=== PATIENT | female | born 1985 | race Caucasian/White ===

== ENCOUNTER 2017-06-15 07:59 | Emergency (ER) | payer OTHER ==
[2017-06-15] MEDS ORDERED: DEXAMETHASONE 10 MG/ML VIAL PO STA (08:41)
[2017-06-15] MEDS ORDERED: KETOROLAC 60 MG/2 ML VIAL IM STA (08:41)
--- NOTE | 2017-06-15 08:44 | ED Physician Documentation ---
PD HPI CHEST PAIN - Stated complaint Stated Complaint: CHEST PX - Chief complaint Chief Complaint: Cardiac - History obtained from History obtained from: Patient - History of Present Illness Timing - onset: Enter time (0), Last night Timing - onset during: Sleep Timing - duration: Hours Timing - details: Abrupt onset, Still present Pain level max: 8 Pain level now: 7 Quality: Pressure, Sharp Location: Left chest Improved by: Rest Worsened by: Exertion, Inspiration, Movement, Palpation, Position Associated symptoms: Feeling faint / dizzy. No: Shortness of air, Diaphoresis, Nausea, Vomiting Similar symptoms before: Diagnosis (costochondritis) Recently seen: Not recently seen Review of Systems Constitutional: denies: Fever, Chills, Myalgias, Fatigue Eyes: denies: Decreased vision Ears: denies: Ear pain Nose: reports: Congestion Throat: denies: Sore throat Cardiac: reports: Chest pain / pressure. denies: Palpitations Respiratory: denies: Dyspnea, Cough GI: denies: Abdominal Pain, Nausea, Vomiting : denies: Dysuria, Frequency Skin: denies: Rash Musculoskeletal: denies: Neck pain, Back pain, Extremity pain PD PAST MEDICAL HISTORY - Past Medical History Past Medical History: No - Past Surgical History Past Surgical History: No - Present Medications Home Medications: Ambulatory Orders Medication Instructions Recorded Confirmed HYDROcod/ACETAM 5/325 [[place] 5/325] 1 - 2 ea PO Q6H PRN #15 tablet 06/15/17 - Allergies Allergies/Adverse Reactions: Allergies Allergy/AdvReac Type Severity Reaction Status Date / Time No Known Drug Allergies Allergy Verified 06/15/17 08:10 - Social History Does the pt smoke?: No Smoking Status: Never smoker Does the pt drink ETOH?: No Does the pt have substance abuse?: No - Immunizations Immunizations are current?: Yes - POLST Patient has POLST: No PD ED PE NORMAL - Vitals Vital signs reviewed: Yes (hypertensive) - General General: No acute distress, Well developed/nourished - HEENT HEENT: Atraumatic, PERRL, EOMI, Ears normal, Moist mucous membranes, Pharynx benign, Dentition benign - Neck Neck: Supple, no meningeal sign, No bony TTP - Cardiac Cardiac: RRR, No murmur - Respiratory Respiratory: No respiratory distress, Clear bilaterally, Other (There is left chest wall tenderness that reproduces the symptoms the patient is having. ) - Abdomen Abdomen: Soft, Non tender - Back Back: No CVA TTP, No spinal TTP - Derm Derm: Normal color, Warm and dry, No rash - Extremities Extremities: No deformity, No edema - Neuro Neuro: No motor deficit, No sensory deficit Eye Opening: Spontaneous Motor: Obeys Commands Verbal: Oriented GCS Score: 15 Results - Vitals Vitals: Vital Signs - 24 hr 06/15/17 06/15/17 06/15/17 08:05 08:47 09:56 Temperature 36.9 C 36.8 C 36.9 C Heart Rate 71 76 69 Respiratory 18 15 15 Rate Blood Pressure 145/101 H 131/90 H O2 Saturation 100 100 99 Oxygen O2 Source Room air - EKG (time done) 0806 Rate: Rate (enter#) (76) Rhythm: NSR QRS: Low voltage Compare to prior EKG: Unchanged from prior EKG (01-24-15) Computer interpretation: Agree with computer - Labs Labs: Laboratory Tests 06/15/17 06/15/17 06/15/17 08:50 08:50 08:50 WBC 5.1 RBC 4.39 Hgb 13.2 Hct 38.1 MCV 86.8 MCH 30.0 MCHC 34.6 RDW 12.3 Plt Count 219 MPV 7.6 L Neut # 3.4 Lymph # 1.2 L Sharp # 0.5 Eos # 0.1 Baso # 0.0 Absolute Nucleated RBC 0.00 Nucleated RBC % 0.0 Sodium 137 Potassium 3.6 Chloride 104 Carbon Dioxide 24 Anion Gap 9.0 BUN 15 Creatinine 0.7 Estimated GFR (MDRD) 98 Glucose 92 Calcium 9.0 Total Bilirubin 0.6 AST 15 ALT 10 Alkaline Phosphatase 46 Troponin I < 0.04 Total Protein 7.0 Albumin 4.1 Globulin 2.9 Albumin/Globulin Ratio 1.4 Lipase 33 Urine Color Urine Clarity Urine pH Ur Specific [place] Urine Protein Urine Glucose (UA) Urine Ketones Urine Occult Blood Urine Nitrite Urine Bilirubin Urine Urobilinogen Ur Leukocyte Esterase Ur Microscopic Review Urine Culture Comments Urine HCG, Qual 06/15/17 09:19 WBC RBC Hgb Hct MCV MCH MCHC RDW Plt Count MPV Neut # Lymph # Sharp # Eos # Baso # Absolute Nucleated RBC Nucleated RBC % Sodium Potassium Chloride Carbon Dioxide Anion Gap BUN Creatinine Estimated GFR (MDRD) Glucose Calcium Total Bilirubin AST ALT Alkaline Phosphatase Troponin I Total Protein Albumin Globulin Albumin/Globulin Ratio Lipase Urine Color YELLOW Urine Clarity CLEAR Urine pH 6.0 Ur Specific [place] >=1.030 H Urine Protein NEGATIVE Urine Glucose (UA) NEGATIVE Urine Ketones 15 H Urine Occult Blood TRACE-INTA Urine Nitrite NEGATIVE Urine Bilirubin NEGATIVE Urine Urobilinogen 0.2 (NORMAL) Ur Leukocyte Esterase NEGATIVE Ur Microscopic Review NOT INDICATED Urine Culture Comments NOT INDICATED Urine HCG, Qual NEGATIVE - Rads (name of study) 2 view chest Radiology: Prelim report reviewed (Impression: Normal two-view chest radiography.), EMP read indepedently, See rad report PD MEDICAL DECISION MAKING - ED course Complexity details: reviewed old records, reviewed results, re-evaluated patient , considered differential, d/w patient ED course: 32-year-old female with acute left chest discomfort has chest wall pain that reproduces her symptoms and she has had this previously when she was using a harness at work and this ended up having to ribs out of place and the patient eventually went to see a chiropractor and had the ribs adjusted and had resolution of her pain. I suspect she has similar issue today. She does not have ensuing injury to start this. Departure - Departure Disposition: 01 Home, Self Care Clinical Impression: Costochondritis Condition: Stable Instructions: ED Chest Pain Costochondritis Follow-Up: Manish Newman MD [Primary Care Provider] - Prescriptions: HYDROcod/ACETAM 5/325 [[place] 5/325] 1 - 2 ea PO Q6H PRN #15 tablet PRN Reason: Pain Comments: Today in the Emergency Department your blood pressure was elevated. This can happen from the stress of the visit itself, from a current illness or circumstance or from uncontrolled hypertension. If you take blood pressure medications take your usual mediations, have your blood pressure re-checked in an appropriate setting and follow up any elevation with your primary care doctor.
[2017-06-15 08:57] LABS: BASOPHILS % (AUTO) 0.4 %; EOSINOPHILS # (AUTO) 0.1 10^3/uL (0.0-0.7); EOSINOPHILS % (AUTO) 1.3 %; HCT - HEMATOCRIT 38.1 % (37.0-47.0); HGB - HEMOGLOBIN 13.2 g/dL (12.0-16.0); LYMPHOCYTES # (AUTO) 1.2 10^3/uL (1.5-3.5); LYMPHOCYTES % (AUTO) 22.9 %; MEAN CORPUSCULAR HGB CONC 34.6 g/dL (32.0-36.0); MEAN CORPUSCULAR VOLUME 86.8 fL (81.0-99.0); MEAN PLATELET VOLUME 7.6 fL (7.9-10.8); MONOCYTES # (AUTO) 0.5 10^3/uL (0.0-1.0); MONOCYTES % (AUTO) 8.9 %; NEUTROPHILS # (AUTO) 3.4 10^3/uL (1.5-6.6); NEUTROPHILS % (AUTO) 66.5 %; RED BLOOD COUNT 4.39 10^6/uL (4.20-5.40); RED CELL DISTRIBUTION WIDTH 12.3 % (12.0-15.0); UNCORRECTED WHITE BLOOD COUNT 5.1 x10^3/uL; WHITE BLOOD COUNT 5.1 x10^3/uL (4.8-10.8)
[2017-06-15 09:10] LABS: ALBUMIN/GLOBULIN RATIO 1.4 (1.0-2.2); BILIRUBIN,TOTAL 0.6 mg/dL (0.2-1.0); CREATININE 0.7 mg/dL (0.4-1.0); POTASSIUM 3.6 mmol/L (3.5-5.0)
[2017-06-15] MEDS ORDERED: KETOROLAC 60 MG/2 ML VIAL ONE (09:24)
[2017-06-15] MEDS ORDERED: DEXAMETHASONE 10 MG/ML VIAL ONE (09:25)
[2017-06-15] MEDS ORDERED: CHERRY SYRUP 10 ML UDC PO ONE (09:25)
--- NOTE | 2017-06-15 09:26 | XRAY Preliminary Report ---
Exam: XR CHEST 2 VIEW PA/LAT IMPRESSION: Normal 2-view chest radiography. [facility] SITE ID: [id number]
--- NOTE | 2017-06-15 09:29 | XRAY Report ---
EXAM: CHEST RADIOGRAPHY EXAM DATE: 06/15/2017 09:11 AM. CLINICAL HISTORY: Left upper chest pain . COMPARISON: 02/13/2015 TECHNIQUE: 2 views. FINDINGS: Lungs/Pleura: No focal opacities evident. No pleural effusion. No pneumothorax. Normal volumes. Mediastinum: Heart and mediastinal contours are unremarkable. Other: Negative bony structures. No acute findings compared with 02/13/2015. IMPRESSION: Normal 2-view chest radiography. [facility] Referring Provider Line: [phone] SITE ID: [id number]
[2017-06-15 09:32] LABS: BILIRUBIN,URINE NEGATIVE (NEGATIVE)
[2017-06-15 09:39] LABS: HCG UR QUAL NEGATIVE; UA CHARGE (STRIP ONLY) YES; UR CULTURE IF IND NOT INDICATED
[2017-06-15 09:59] VITALS: BP 131/90
== END 2017-06-15 10:10 | disposition home or self-care (01) ==
LOC: ED 07:59
DX: M94.0 Chondrocostal junction syndrome [Tietze] (principal); R03.0 Elevated blood-pressure reading, without diagnosis of hypertension
CPT/HCPCS: 71020; 80053; 81003; 81025; 83690; 84484; 85025; 93005; 96372; 99283; 99284; A9270; 81001; 87086

== ENCOUNTER 2020-07-28 14:03 | Emergency (ER) | payer OTHER ==
[2020-07-28 14:14] VITALS: BP 104/66
--- NOTE | 2020-07-28 14:40 | ED Physician Documentation ---
History of Present Illness - Stated complaint Stated Complaint: FEVER/COUGH/NAUSEA - Chief complaint Chief Complaint: General - History obtained from History obtained from: Patient - History of Present Illness Timing: How many days ago (3) Pain level max: 0 Pain level now: 0 - Additonal information Additional information: 85-year-old female presents to the emergency department with cough and congestion for the past 3 days. No fevers. Has had diarrhea as well. No vomiting. No rash. She called the [facility] nurse advice line and was told to come here for a Covid swab. Nothing makes it better or worse. Dry cough. Review of Systems Constitutional: denies: Fever, Chills Nose: reports: Rhinorrhea / runny nose, Congestion Respiratory: reports: Cough GI: reports: Diarrhea (Nonbloody.). denies: Vomiting Skin: denies: Rash Musculoskeletal: denies: Neck pain, Back pain Neurologic: denies: Headache PD PAST MEDICAL HISTORY - Past Surgical History Past Surgical History: No - Present Medications Home Medications: Ambulatory Orders Medication Instructions Recorded Confirmed No Known Home Medications 07/28/20 07/28/20 - Allergies Allergies/Adverse Reactions: Allergies Allergy/AdvReac Type Severity Reaction Status Date / Time No Known Drug Allergies Allergy Verified 06/15/17 08:10 - Social History Does the pt smoke?: No Smoking Status: Never smoker Does the pt drink ETOH?: No Does the pt have substance abuse?: No - Immunizations Immunizations are current?: Yes - POLST Patient has POLST: No PD ED PE NORMAL - Vitals Vital signs reviewed: Yes - General General: Alert and oriented X 3, Well developed/nourished - HEENT HEENT: PERRL, Ears normal, Moist mucous membranes, Pharynx benign - Neck Neck: Supple, no meningeal sign, No adenopathy - Cardiac Cardiac: RRR, Strong equal pulses - Respiratory Respiratory: No respiratory distress, Clear bilaterally - Abdomen Abdomen: Soft, Non tender, Non distended - Derm Derm: Warm and dry - Extremities Extremities: No edema - Neuro Neuro: Alert and oriented X 3 Results - Vitals Vitals: Vital Signs - 24 hr 07/28/20 14:12 Temperature 37.0 C Heart Rate 100 Respiratory 18 Rate Blood Pressure 104/66 O2 Saturation 100 Oxygen O2 Source Room air PD MEDICAL DECISION MAKING - ED course Complexity details: considered differential, d/w patient ED course: Patient is well-appearing, nontoxic. Afebrile. No hypoxia. No respiratory distress. Appears to have a viral syndrome. Covid testing performed. Patient counseled regarding signs and symptoms for which I believe and urgent re- evaluation would be necessary. Patient with good understanding of and agreement to plan and is comfortable going home at this time This document was made in part using voice recognition software. While efforts are made to proofread this document, sound alike and grammatical errors may occur. Departure - Departure Disposition: 01 Home, Self Care Clinical Impression: Viral syndrome Condition: Good Instructions: ED Viral Syndrome Follow-Up: Manish Newman MD [Primary Care Provider] - Within 1 week Comments: Drink plenty of fluids and rest. Return if you worsen. You have a Covid test pending. You need to self quarantine until the result is done and negative. Do not leave your house. Do not get near anybody. The results should be done in 48 to 72 hours. We will call with a positive result, the fastest way to get a negative result for confirmation though is to go to the hospital website at [email or web address], click on the my [employer] tab and sign up for the patient portal. If any friends or family get sick and would like to have a Covid test done, but do not have signs or symptoms that would necessitate being hospitalized, we encourage testing through our coronavirus swabbing station, call [phone] to schedule an appointment.
--- OUTSIDE RECORDS SUMMARY | 2020-08-01 01:52 | EXTERNAL MEDICAL SUMMARY RPT | Continuity of Care Document ---
:1985 Demographics Phone Unavailable Preferred Language Unknown Marital Status Unknown Episcopalian Affiliation Unknown Race Unknown Ethnic Group Unknown Author Organization [place] Address [address] [place] [address] Phone Care Team Providers Name Role Phone Indonesian Unavailable Unavailable Problems date description facility 2015-02-13 02:45 TIETZE'S DISEASE [facility] 2015-02-13 02:45 CHEST PAIN NEC [facility] 2017-06-15 07:59 CHONDROCOSTAL JUNCTION SYNDROME [facility] [TIETZE] 2017-06-15 07:59 ELEVATED BLOOD-PRESSURE READING, [facility] W/O DIAGNOSIS OF HTN 2017-06-15 07:59 CHEST PAIN, UNSPECIFIED [facility] Allergies date description facility NO ALLERGY INFORMATION AVAILABLE [facility] PENICILLINS [facility] AVOCADO (LAURUS PERSEA) [facility] CODEINE [facility] PENICILLIN [facility] BACLOFEN [facility] MEPERIDINE [facility] CIMETIDINE HCL [facility] CODEINE SULFATE [facility] HYDROCODONE [facility] MELOXICAM [facility] MORPHINE [facility] SULFAMETHOXAZOLE W/TRIMETHOPRIM [facility] (CO-TRIMOXAZOLE) TRAMADOL [facility] SULFA ANTIBIOTICS [facility] NO ALLERGY INFORMATION AVAILABLE [facility] NO KNOWN ALLERGIES [facility] CODEINE [facility] BENAZEPRIL [facility] AMOXICILLIN-POT CLAVULANATE [facility] No Known Drug Allergies [facility] Results test status date ordered by attending specimen emerson e null F 2020-07-28 NATALIE Hernandez 2020-07 14:57:00 14:48:00 facility observation status value reference units lab abnor mal line notes range code [facility] F NEGATIVE unknown [facility] report - Report scanned to Patient' s EMR. [facility] Social History date description facility [id number]
== END 2020-07-28 14:55 | disposition home or self-care (01) ==
LOC: ED 14:03
DX: B34.9 Viral infection, unspecified (principal); Z20.822 Contact with and (suspected) exposure to COVID-19
CPT/HCPCS: 99283; 99284

== ENCOUNTER 2020-12-28 17:55 | Emergency (ER) | payer OTHER ==
[2020-12-28 18:04] VITALS: BP 122/78
--- NOTE | 2020-12-28 18:09 | ED Physician Documentation ---
PD HPI LOWER EXT INJURY - Stated complaint Stated Complaint: RT FOOT PX - Chief complaint Chief Complaint: Trauma Ext - History obtained from History obtained from: Patient - History of Present Illness PD HPI LOW EXT INJURY LOCATION: Right, Foot Type of injury: Blunt / blow (she accidnetally dropped piece of plywood onto top of right foot. Pain just there. Denies other injury.) Where injury occurred: Home Timing - onset: How many hours ago (1-2), Today Timing - details: Abrupt onset, Still present (hurts for walking and states her usual shoe not fitting well due to some swelling.) Worsened by: Moving, Palpating, Other (walking) Associated symptoms: Swelling. No: Weakness, Numbness Similar symptoms before: Has not had sx before Review of Systems Skin: denies: Abrasion (s), Laceration (s) Neurologic: denies: Focal weakness, Numbness PD PAST MEDICAL HISTORY - Past Medical History Past Medical History: No - Past Surgical History Past Surgical History: No - Present Medications Home Medications: Ambulatory Orders Medication Instructions Recorded Confirmed No Known Home Medications 07/28/20 12/28/20 - Allergies Allergies/Adverse Reactions: Allergies Allergy/AdvReac Type Severity Reaction Status Date / Time Penicillins Allergy Emesis Verified 12/28/20 18:02 - Social History Does the pt smoke?: No Smoking Status: Never smoker Does the pt drink ETOH?: No Does the pt have substance abuse?: No - Immunizations Immunizations are current?: Yes - POLST Patient has POLST: No PD ED PE NORMAL - Vitals Vital signs reviewed: Yes - General General: Alert and oriented X 3, Well developed/nourished - Derm Derm: Normal color, Warm and dry - Extremities Extremities: Other (right foot with swelling and tenderness dorsal mid foot across it. No noted deformity. Normal color and cap refill in toes. ) - Neuro Neuro: No motor deficit, No sensory deficit Results - Vitals Vitals: Vital Signs - 24 hr 12/28/20 18:02 Temperature 37.0 C Heart Rate 68 Respiratory 12 Rate Blood Pressure 122/78 O2 Saturation 100 Oxygen O2 Source Room air - Rads (name of study) right foot xray Radiology: Prelim report reviewed (no fractures), See rad report Departure - Departure Disposition: 01 Home, Self Care Clinical Impression: Foot contusion Qualifiers: Encounter type: initial encounter Laterality: right Qualified Code(s): S90.31XA - Contusion of right foot, initial encounter Condition: Stable Record reviewed to determine appropriate education?: Yes Instructions: ED Contusion Foot Comments: I do not see any fractures on x-ray. This will still hurt though for several days likely and may take a week or so to fully heal back to normal movement and use. The largest part will be reducing swelling with ice elevate and resting. Less movement can be helpful for the discomfort. Along those lines, the postop shoe can be helpful to reduce motion through the foot with walking. Crutches for partial to nonweightbearing as needed for comfort as well. Ibuprofen 3 times daily for inflammation and pain and add Tylenol every 4-6 hours if needed for pain. I would anticipate improvement over the next few days and resolution by several days to a week. Recheck if not in that timeframe. Discharge Date/Time: 12/28/20 18:55
--- OUTSIDE RECORDS SUMMARY | 2020-12-28 18:18 | EXTERNAL MEDICAL SUMMARY RPT | Continuity of Care Document ---
:1985 Demographics Phone Unavailable Preferred Language Unknown Marital Status Unknown [employer]aritan Affiliation Unknown Race Unknown Ethnic Group Unknown Author Organization [place] Address [address] [phone] Phone Allergies Encounters Medications Problems Results
[2020-12-28] MEDS ORDERED: ACETAMINOPHEN 325 MG TABLET PO STA (18:22)
--- NOTE | 2020-12-28 18:47 | XRAY Report ---
PROCEDURE: Foot 3 View RT INDICATIONS: Trauma TECHNIQUE: 3 views of the foot were acquired. COMPARISON: None FINDINGS: Bones: No fractures or dislocations. No suspicious bony lesions. Soft tissues: No tibiotalar joint effusion. Achilles tendon appears normal. IMPRESSION: Unremarkable right foot radiographs. No fracture or foreign body Reviewed by: Palmer Donaldson MD on 12/28/2020 5:46 PM [facility] Approved by: Palmer Donaldson MD on 12/28/2020 5:46 PM [facility] Station ID: [id number]
== END 2020-12-28 18:55 | disposition home or self-care (01) ==
LOC: ED 17:55
DX: S90.31XA Contusion of right foot, initial encounter (principal); W20.8XXA Other cause of strike by thrown, projected or falling object, initial encounter; Y92.009 Unspecified place in unspecified non-institutional (private) residence as the place of occurrence of the external cause
CPT/HCPCS: 73630; 99282; 99283; A9270